=== PATIENT | female | born 1995 | race Caucasian/White ===

== ENCOUNTER 2020-08-26 17:50 | Emergency (ER) | payer OTHER ==
[~2020-08-26] VITALS: Ht 165.1 cm; Wt 69.9 kg
[2020-08-26 17:58] VITALS: BP 99/68
[2020-08-26] MEDS ORDERED: KETOROLAC 30 MG/ML VIAL IM ONE (18:05)
--- NOTE | 2020-08-26 18:05 | NUR ---
25/F BIB SELF C/O LEFT WRIST PAIN 8 X 4 DAYS. DENIES TRAUMA.
[2020-08-26] MEDS ORDERED: NAPR-54 PO (18:52)
[2020-08-26 19:21] VITALS: BP 99/68
== END 2020-08-26 19:21 | disposition home or self-care (01) ==
LOC: MED 17:50
DX: M25.532 Pain in left wrist (principal)
CPT/HCPCS: 29125; 73110; 96372; 99283; J1885